=== PATIENT | male | born 1945 | race Caucasian/White ===

== ENCOUNTER 2020-08-11 10:53 | Outpatient (CLI) | payer MEDICARE, SELFPAY ==
[2020-08-11] VITALS (10 sets, daily range): BP systolic 125–146; BP diastolic 70–87; PULSE 65–87; RESP 16; TEMP 37.1–37.2; O2SAT 92–98
== END 2020-08-11 13:48 | disposition home or self-care (01) ==
PROVIDERS: Visit Provider Internal Medicine
DX: U07.1 COVID-19 (principal)
CPT/HCPCS: 96365